=== PATIENT | female | born 1960 | race African-American/Black ===

== ENCOUNTER 2021-05-15 00:07 | Observation (INO) ==
[2021-05-15] MEDS ORDERED: SODIUM CHLORIDE 0.9% 500 ML IV STA (00:43)
[2021-05-15 01:16] LABS: Bacteria,Urine Occasional /HPF (Few); Bilirubin,Urine Negative (Negative); Blood, Urine Large mg/dL (Negative); Glucose,Urine (UA) 50 mg/dL (Negative); Granular Casts,Urine 6 /LPF (0-1); Hyaline Casts,Urine 17 /LPF (0-3); Ketones,Urine 5 mg/dL (Negative); Nitrite,Urine Negative (Negative); Protein,Urine 100 MG/DL; RBC,Urine 484 /HPF (0-4); Squamous Epithelial Cell,Urine Occasional /HPF (0-10); Urine Appearance CLOUDY (Clear); Urine Color Amber (Yellow); Urine Specific Gravity 1.015 (1.001-1.035)
[2021-05-15] MEDS ORDERED: cefTRIAXone 1,000 MG in SODIUM CHLORIDE 0.9% 100 ML IV STA (01:24)
[2021-05-15 01:34] LABS: Basophils # 0.1 10*3/uL (0.0-0.2); Basophils % 0.4 % (0.0-0.8); Hematocrit 26.9 VOL% (35.7-47.0); Hemoglobin 7.7 GM/DL (12.0-16.0); Immature Granulocytes % 5.6 %; Immature Granulocytes Absolute 1.09 #; Lymphocytes # 1.1 10*3/uL (1.4-4.0); Lymphocytes % 5.5 % (21.3-54.2); Mean Corpuscular HGB Conc 28.6 GM/DL (32-36); Mean Corpuscular Volume 85.4 FL (87-102); Mean Platelet Volume 10.3 FL (9.6-12.0); Monocytes % 3.5 % (1.7-12.7); NRBC # 0.21 10*3/uL; Red Blood Count 3.15 MC/CUMM (3.8-5.5); Red Cell Distribution Width 22.1 % (9.3-17.3); White Blood Count 19.6 T/CUMM (4-12)
[2021-05-15 01:36] LABS: Platelet Count 88 T/CUMM (130-400)
[2021-05-15 01:44] LABS: Alanine Aminotransferase 90 U/L (13-56); Albumin 1.2 G/DL (3.4-5.0); Alkaline Phosphatase 802 U/L (45-117); Aspartate Amino Transferase 100 U/L (0-37); Blood Urea Nitrogen 103 MG/DL (7-18); Calcium 6.3 MG/DL (8.5-10.1); Carbon Dioxide 12 MMOL/L (21-32); Estimated Glom Filtration Rate 12 ML/MIN; Glucose 85 MG/DL (74-106); Osmolality,Calculated 300.1 MOS/KG (273-304); Potassium 5.7 MMOL/L (3.5-5.1); Sodium 135 MMOL/L (136-145); Total Protein 6.4 G/DL (6.4-8.2)
[2021-05-15] MEDS ORDERED: SODIUM CHLORIDE 0.9% 1,000 ML IV STA (01:49)
[2021-05-15 02:11] LABS: Band Neutrophils 4 % (0-10); Lymphocytes 6 % (20-55); Metamyelocytes 2 %; Myelocytes 2 %; Segmented Neutrophils 83 % (50-85); Total Cells Counted 100
[2021-05-15 02:14] LABS: Atypical Lymphocytes Few; Platelet Estimate Decreased
[2021-05-15 02:18] LABS: Hypochromia 3+
[2021-05-15 02:21] LABS: Microcytosis 1+; Polychromasia Few
[2021-05-15] MEDS ORDERED: ACETAMINOPHEN 325 MG TABLET PO PRN (02:31)
[2021-05-15] MEDS ORDERED: HALOPERIDOL 5 MG/ML AMP IV PRN (03:10)
[2021-05-15] MEDS ORDERED: SODIUM BICARB INJ 150 MEQ in SODIUM CHLORIDE 0.45% 1,000 ML IV SCH (03:15)
[2021-05-15] MEDS: LORazepam 2 MG/1 ML VIAL IV PRN ×2 (05:00→09:32)
[2021-05-15 06:15] VITALS: BP 82/45
[2021-05-15] MEDS ORDERED: MORPHINE 2 MG/1 ML SYRINGE IV ONE (06:32)
[2021-05-15] MEDS ORDERED: ONDANSETRON 4 MG/2 ML VIAL IV PRN (07:42)
[2021-05-15] MEDS ORDERED: PROMETHAZINE 25 MG/1 ML VIAL IM PRN (07:43)
[2021-05-15] MEDS ORDERED: HEPARIN 5,000 UNIT/1 ML VIAL SUBCUT SCH (09:00)
[2021-05-15] MEDS ORDERED: MORPHINE 2 MG/1 ML SYRINGE IV PRN (10:31)
[2021-05-15] MEDS ORDERED: cefTRIAXone 1,000 MG in SODIUM CHLORIDE 0.9% 100 ML IV SCH (21:00)
== END 2021-05-15 14:07 | disposition expired ==
LOC: SUATTDRO → EDUNIT# → EDBD → N.EDINP 00:07 → N.ED 00:07 → N.EDINP 14:07
PROVIDERS: ADMIT Internal Medicine; ATTEND Internal Medicine